=== PATIENT | male | born 1990 | race Native Hawaiian/Other Pacific Islander ===

== ENCOUNTER 2023-06-17 18:07 | Emergency (ER) | payer OTHER, BC | END 2023-06-17 20:44 | disposition home or self-care (01) | LOC: ERS 18:07 | DX: M25.532 Pain in left wrist (principal); F17.290 Nicotine dependence, other tobacco product, uncomplicated; V89.2XXA Person injured in unspecified motor-vehicle accident, traffic, initial encounter ==